=== PATIENT | female | born 1965 | race Caucasian/White ===

== ENCOUNTER → 2020-07-01 12:36 | Outpatient (CLI) | payer MEDICARE, MEDICAID, SELFPAY ==
--- NOTE | 2020-07-01 12:40 | CA_ITS ---
APPROVED REPORT Bilateral Lower Extremity Venous Study for Inspector Exhaust Emissions: PAOLA RCS, RVS Indications leg pain bilateral Findings Color flow duplex of the right lower extremity demonstrates no evidence of deep vein thombosis nor superficial venous thrombophlebitis. Color flow duplex of the left lower extremity demonstrates no evidence of deep vein thrombosis nor superficial venous thrombophlebitis. Conclusion Color flow duplex of the right lower extremity demonstrates no evidence of deep vein thombosis nor superficial venous thrombophlebitis. Color flow duplex of the left lower extremity demonstrates no evidence of deep vein thrombosis nor superficial venous thrombophlebitis. Electronically signed by : Esdras Gaona MD 07/01/2020 16:10:17
--- NOTE | 2020-07-01 12:52 | XR_ITS ---
PROCEDURE: XR CHEST 2V CLINICAL HISTORY: cp Chest pain COMPARISON: No exams were available for comparison FINDINGS: The cardiomediastinal silhouette and pulmonary vascularity are within normal limits. The lungs are clear without infiltrates, suspicious nodules, or pleural effusions. There is loss of height anteriorly of the T6 and T7 vertebral body age indeterminate. IMPRESSION: Mild loss of height anteriorly of the T6 and T7 vertebral body. This is age indeterminate Otherwise negative Dictated by: Esdras Gaona MD 07/01/2020 13:41 Esdras Gaona MD in [place] 07/01/2020 13:41
[2020-07-01 14:23] LABS: Basophils % 0.6 % (0.1-2.0); Eosinophils # 0.1 K/mm3 (0.0-0.4); Eosinophils % 1.1 % (0.1-12.0); Hematocrit 38.4 % (37.0-47.0); Hemoglobin 12.6 g/dL (12.2-16.2); Lymphocytes % 42.9 % (10-50); Mean Corpuscular HGB Conc 32.9 g/dL (31.8-35.4); Mean Corpuscular Hemoglobin 38.6 pg (27.0-31.2); Mean Corpuscular Volume 117.3 fl (81-99); Mean Platelet Volume 9.3 fl (7.4-10.4); Monocytes # 0.4 K/mm3 (0.1-1.0); Monocytes % 5.1 % (1.7-9.3); Neutrophils # 3.6 K/mm3 (1.8-7.8); Neutrophils % 50.4 % (37.0-80.0); Platelet Count 201 K/mm3 (142-424); Red Blood Count 3.28 M/mm3 (4.20-5.40); Red Cell Distribution Width 14.9 % (11.5-17.5); White Blood Count 7.1 K/mm3 (4.8-10.8)
[2020-07-01 14:42] LABS: Chloride 106 mmol/L (98-107); Potassium 4.6 mmoL/L (3.5-5.1); Sodium 139 mmol/L (136-145)
[2020-07-01 14:44] LABS: Blood Urea Nitrogen 13 mg/dl (7-17); Estimated Glomerular Filt Rate 65 ml/min (>60); GFR (African American) 79 ML/MIN (>60)
[2020-07-01 14:45] LABS: Alanine Aminotransferase 7 U/L (12-78); Albumin Level 4.3 g/dl (3.5-5.0); Alkaline Phosphatase 72 U/L (38-126); Anion Gap 7.6 mEq/L (5-15); Aspartate Amino Transferase 17 U/L (14-36); Bilirubin,Direct 0.3 mg/dl (0.0-0.4); Bilirubin,Indirect 0.1 mg/dL (0.0-0.9); Bilirubin,Total 0.4 mg/dl (0.2-1.3); Bilirubin,Unconjugated 0.1 mg/dL (0.0-1.1); Calcium 9.4 mg/dl (8.4-10.2); Carbon Dioxide 30 mmol/L (22.0-30.0); Chol/HDL Ratio 3.1 (1-3.5); Cholesterol 160 mg/dl (140-200); Creatine Kinase 47 U/L (30-135); Glucose 103 mg/dl (74-100); HDL Cholesterol 52 mg/dl (40-60); Total Protein,Serum 7.3 g/dl (6.3-8.2); Triglycerides 209 mg/dl (30-150); VLDL Cholesterol 42 mg/dL (0-40)
[2020-07-01 14:56] LABS: Direct LDL Cholesterol 75.51 mg/dL (100-129)
[2020-07-01 15:00] LABS: Free T4 (Free Thyroxine) 1.07 ng/dl (0.78-2.19)
[2020-07-01 15:17] LABS: Thyroid Stimulating Hormone 0.31 uIU/mL (0.465-4.68)
== END ==
PROVIDERS: PCP Family Medicine; Visit Provider Internal Medicine
DX: R07.9 Chest pain, unspecified (principal); I73.9 Peripheral vascular disease, unspecified; I10 Essential (primary) hypertension; E78.5 Hyperlipidemia, unspecified; M79.606 Pain in leg, unspecified; F17.200 Nicotine dependence, unspecified, uncomplicated
CPT/HCPCS: 36415; 71046; 80048; 80061; 80076; 82550; 84439; 84443; 85025; 93970

== ENCOUNTER → 2020-08-21 11:32 | Outpatient (CLI) | payer MEDICARE, MEDICAID, SELFPAY ==
--- NOTE | 2020-08-21 11:32 | NM_ITS ---
APPROVED REPORT Exam: Nuclear Stress Test Indication: HTN, HYPERLIPIDEMIA,TOB USE, C.P., SOB, SYNCOPE Patient Location: Outpatient Stress Tech: Chanda Coffeynkson [place] Tech:JOLLY Hernandez RT (R)(N)(M) Ht: 5 ft 8 in Wt: 210 lbs Bra Size: 40C HR: 78 bpm BP: 133/76 mmHg BSA: 2.09 m2 BMI: 31.9 History: HTN, HYPERLIPIDEMIA,TOB USE, C.P., SOB, SYNCOPE Procedure: Patient received a 0.4 mg of intravenous Lexiscan, resting heart rate 78 bpm, resting blood pressure 133/76 mmHg, with Lexiscan maximum heart rate achived was 108 bpm which is Less than 85 % of the maximum predicted heart rate and blood pressure was 166/82 mmHg. With Lexiscan, patient denied any complaint of chest pain. Electrocardiogram Resting electrocardiogram showed sinus rhythm, with Lexiscan there is less than 1.[address] segment depression noted from the baseline EKG. The EKG portion of the Lexiscan is nondiagnostic. Cardiac Stress and Resting SPECT Images: Cardiac Stress and Resting SPECT images were obtained using technetium 99m Myoview 32.4 mCi stress and 10.18 mCi at rest. Gated SPECT for analysis of segmental wall motion and calculation of the ejection fraction also done. Prone images were also obtained. Cardiac stress and resting SPECT images show uniform myocardial activity without segmental perfusion abnormality, computer derived ejection fraction is over 65% with no regional wall motion abnormality, right ventricle is normal size and contractility. Conclusion: 1. The EKG portion of the Lexiscan is nondiagnostic. 2. No scintigraphic evidence of reversible ischemia seen, computer derived ejection fraction is over 65% with no regional wall motion abnormality, right ventricle is normal size and contractility. 3. Normal Lexiscan Myoview study. Electronically signed by : Manuel Reece, 08/22/2020 12:52:28
--- NOTE | 2020-08-21 12:41 | CA_ITS ---
APPROVED REPORT EXAM: Comprehensive 2D, Doppler, and color-flow Echocardiogram Headrig Sawyer: Lizbeth Castillo RCS, RVS Ht: 5 ft 8 in Wt: 203lbs BSA: 2.06 BP: 177/93 mmHg Indications: Shortness of Breath, Hypertension/HDD, smoker Echo Enhancing Agent Comments: Poor acoustic windows throughout with lung impedence 2D Dimensions LA Volume 67.20 mL LA Volume Index 32.60 mL/m2 (M/F) 16-34 M-Mode Dimensions RVDd 1.82 cm (0.9-2.6) LA Diam 4.00 cm (1.9-4.0) LVDd 5.40 cm (3.5-5.7) Ao Diam 3.43 cm (2.0-3.7) LVDs 3.18 cm (3.5-5.7) IVSd 0.79 cm (0.6-1.1) PWd 0.68 cm (0.6-1.1) EF (Teich) 71.50% EPSs 0.61 cm FS 41.10% EDV (Teich) 141.30 mL TAPSE 2.42 (<1.7) ESV (Teich) 40.30 mL LV Diastology E Decel Time 153.00 (160-240 msec) E/A Ratio 1.25 MED E' 10.10 (< 7 cm/sec) MED A' 11.30 cm/s E'/MED E' Ratio 11.62 (>14) LAT E' 9.60 (<10 cm/sec) LAT A' 12.20 cm/s E/LAT E' Ratio 12.23 (>14) Pulm Vein s 57.00 cm/sec Aortic Valve LVOT Max 119.00 (70-110 cm/s) LVOT VTI 24.35 cm AO Peak GR. 7.60 mmHg Mitral Valve MV A Velocity 94.00 (40-130 cm/s) E/A Ratio 1.25 MV Decel. Time 153.00 (160-240 ms) Pulmonary Valve PV Peak Velocity 94.00 (50-150 cm/s) Tricuspid Valve TR P. Velocity 228.00 cm/s RAP Estimate 10.00 mmHg RVSP 30.80 mmHg Left Ventricle Left atrium is mildly enlarged, left ventricle is normal size, mild concentric left ventricular hypertrophy, visually estimated ejection fraction 55% with no regional wall motion abnormality, diastolic parameters are inconclusive. Right Ventricle Right atrium and right ventricle are normal size and contractility. Aortic Valve Aortic valve is grossly normal, there is no aortic stenosis or aortic insufficiency. Mitral Valve Mitral valve is grossly normal, there is trace mitral regurgitation. Tricuspid Valve Tricuspid grossly normal, there is trace tricuspid regurgitation. Tricuspid rotation jet velocity is inadequate for calculation of the right ventricular systolic pressure. Pulmonic Valve Pulmonic valve is poorly visualized. Great Vessels Aortic root is normal size. Pericardium No significant pericardial effusion noted. Conclusion 1. Mildly enlarged left atrium, normal left ventricular size, mild concentric left ventricular hypertrophy, visually estimated ejection fraction 55% with no regional wall motion abnormality, diastolic parameters are inconclusive. 2. Trace mitral and tricuspid regurgitation. 3. No significant pericardial effusion. Electronically signed by : Manuel Reece, 08/22/2020 15:26:39
--- NOTE | 2020-08-21 12:41 | US_ITS ---
APPROVED REPORT Exam Type: Ankle to Brachial Index Hospice Volunteer: Mauro RCS, RVS Indications Claudication: Rest Pain: History of Smoking Risk Factors Hypertension Current Smoker Pressures/Indices Right Indices Left Indices Brachial 144.00 mmHg Brachial 144.00 mmHg Low Thigh 156.00 mmHg 1.08 Low Thigh 152.00 mmHg 1.06 Calf 168.00 mmHg 1.17 Calf 149.00 mmHg 1.03 Ankle(PT) 164.00 mmHg 1.14 Ankle(PT) 154.00 mmHg 1.07 Ankle(DP) 159.00 mmHg 1.10 Ankle(DP) 147.00 mmHg 1.02 Digit 112.00 mmHg 0.78 Digit 123.00 mmHg 0.85 Findings RT LOUISE=1.14 LT LOUISE=1.07 RT TPI=0.78 LT TPI=0.85 Conclusion RT LOUISE=1.14 LT LOUISE=1.07 RT TPI=0.78 LT TPI=0.85 Normal appearing resting noninvasive lower extremity arterial study. Electronically signed by : Esdras Gaona MD 08/26/2020 16:11:18
--- NOTE | 2020-08-21 14:30 | CA_ITS ---
APPROVED REPORT Exam: Pharmacologic Technologist: Breana Henderson Ht: 5 ft 9 in Wt: 203 lbs BSA: 2.08 m2 HR: 78 bpm BP: 133/76 mmHg Rhythm: NSR Medical History Medical History: HTN, Hyperlipidemia Allergies: No known drug allergies Cardiac Risk Factors: HTN, FHX of CAD, Hyperlipidemia Stress Test Details HR Resting HR: 78 bpm Max Heart Rate (APMHR): 167 bpm Max HR Achieved: 108 bpm Target HR (85% APMHR): 141 bpm % of APMHR: 64 Recovery HR: 83 bpm BP Resting BP: 133.0/76.0 mmHg Max BP: 165.0/88.0 mmHg Recovery BP: 160.0/85.0 mmHg ECG Resting ECG: NSR Stress ECG Conclusion PT BECAME SOA, MALAISE, MILD CHEST TIGHTNESS, NO ARRHYTHMIAS. NON SPECIFIC T WAVE FLATTENING. UNREMARKABLE LEXISCAN STRESS. MYOVIEW IMAGES REPORTED SEPARATELY. Electronically signed by : Manuel Reece, 08/22/2020 12:49:25
== END ==
PROVIDERS: PCP Family Medicine; Visit Provider Internal Medicine
DX: E78.5 Hyperlipidemia, unspecified (principal); F17.200 Nicotine dependence, unspecified, uncomplicated; I10 Essential (primary) hypertension; R07.9 Chest pain, unspecified; I73.9 Peripheral vascular disease, unspecified; R06.00 Dyspnea, unspecified
CPT/HCPCS: 78452; 93017; 93306; 93923; A9502; J2785

== ENCOUNTER → 2020-08-27 12:22 | Outpatient (CLI) | payer MEDICARE, MEDICAID, SELFPAY ==
[2020-08-27 15:10] LABS: Vitamin B12 207 pg/mL (239-931)
[2020-08-27 15:11] LABS: Folate 1.88 ng/mL
[2020-09-06 06:16] LABS: 1,25 Dihydroxy Vitamin D 46 pg/mL (.); 1,25-Dihydroxy, Vitamin D-2 <10 pg/mL (.); 1,25-Dihydroxy, Vitamin D-3 44 pg/mL (.)
== END ==
PROVIDERS: Visit Provider Internal Medicine
DX: D75.89 Other specified diseases of blood and blood-forming organs (principal); E78.2 Mixed hyperlipidemia; F17.200 Nicotine dependence, unspecified, uncomplicated; I10 Essential (primary) hypertension; R07.9 Chest pain, unspecified
CPT/HCPCS: 36415; 82607; 82652; 82746

== ENCOUNTER → 2021-01-09 09:53 | Outpatient (CLI) | payer MEDICARE, MEDICAID, SELFPAY ==
--- NOTE | 2021-01-09 09:53 | CT_ITS ---
PROCEDURE: CT CHEST WO CON CLINICAL INDICATION: Spontaneous pneumothorax COMPARISON: No exams were available for comparison TECHNIQUE: Axial images obtained with sagittal and coronal reformats. All CT scans at the facility use one or more dose reduction, viz: automated exposure control, ma/kV adjustment per patient size (including targeted exams where dose is matched to indication, i.e. head), or iterative reconstruction technique. FINDINGS: No mediastinal or hilar mass or adenopathy. There are COPD changes. There are small right apical blebs largest of which is 1.7 cm. There are centrilobular emphysematous changes. There is evidence of old granulomatous disease. Mild biapical fibrotic changes also noted. In the right apex there are 2 small areas of increased density and may represent calcifications or small clips. No acute bony findings. There is mild thoracic curvature convex left. IMPRESSION: COPD changes with small right apical blebs the largest at 1.7 cm with biapical fibrotic change. Two small hyperdensities are present in the right apex and could be due to calcifications or clips. There is no evidence of residual pneumothorax. There are centrilobular emphysematous changes No suspicious mass effusion or infiltrate. Dictated by: Esdras Gaona MD 01/09/2021 13:24 Esdras Gaona MD in [place] 01/09/2021 13:24
--- NOTE | 2021-01-09 09:53 | US_ITS ---
PROCEDURE: US THYROID CLINICAL INDICATION: goiter COMPARISON: No exams were available for comparison FINDINGS: Right lobe: 4.1 x 2 x 2 cm. A 3 x 2 mm hypoechoic nodule is present in the mid aspect of the right lobe TR level 2 benign-appearing Left lobe: 4.5 x 2.1 x 2.7 cm. A small 4 x 2 mm slightly hypoechoic areas present in the upper pole. A 5 mm by 6 x 3 mm cystic nodules present in the mid polar region. A 4 mm hypoechoic nodules present in the lower pole and a 5 x 3 mm hypoechoic nodule also noted in the lower pole. These are not suspicious. Isthmus: The isthmus is thickened at 7 mm. There is a 7 mm slightly hypo to isoechoic nodule of the right lobe of the thyroid gland well-circumscribed without obvious calcifications. There is some enhanced through transmission of sound. Additional findings: IMPRESSION: Small bilateral benign-appearing thyroid nodules and nodule within the isthmus. Recommend annual follow-up Dictated by: Esdras Gaona MD 01/09/2021 13:07 Esdras Gaona MD in [place] 01/09/2021 13:07
--- NOTE | 2021-01-09 10:45 | PC.NURSE ---
Pt completed PFT without incident. Albuterol 0.083% given via HHN, per protocol, Pt tolerated tx well.
== END ==
PROVIDERS: PCP Family Medicine; Visit Provider Internal Medicine Pulmonary Disease
DX: F17.210 Nicotine dependence, cigarettes, uncomplicated (principal); J93.83 Other pneumothorax; R06.00 Dyspnea, unspecified; R06.02 Shortness of breath; E04.9 Nontoxic goiter, unspecified
CPT/HCPCS: 71250; 76536; 94060; 94726; 94729

== ENCOUNTER → 2022-11-11 12:35 | Outpatient (CLI) | payer MEDICARE, MEDICAID, SELFPAY ==
--- NOTE | 2022-11-11 12:52 | XR_ITS ---
FINAL REPORT TECHNIQUE: Chest PA & Lateral CLINICAL HISTORY: chest pain/ tightness FINDINGS: 2 views of the chest were performed. The heart size is normal. The mediastinum is within normal limits. There is no acute cardiopulmonary process. There are no pleural effusions. There is no pneumothorax. The bony thorax appears intact. IMPRESSION: No acute cardiopulmonary process. Reviewed, Interpreted and Dictated by Johnathan Smart MD Transcribed by Rajani Briscoe Authenticated and . [facility]
[2022-11-11 12:57] LABS: Basophils % 0.5 % (0.1-2.0); Eosinophils # 0.1 K/mm3 (0.0-0.4); Eosinophils % 1.5 % (0.1-12.0); Hematocrit 39.8 % (37.0-47.0); Hemoglobin 13.2 g/dL (12.2-16.2); Lymphocytes # 3.5 K/mm3 (0.7-4.5); Lymphocytes % 48.3 % (10-50); Mean Corpuscular HGB Conc 33.1 g/dL (31.8-35.4); Mean Corpuscular Volume 105.7 fl (81-99); Mean Platelet Volume 9.4 fl (7.4-10.4); Monocytes # 0.3 K/mm3 (0.1-1.0); Monocytes % 4.5 % (1.7-9.3); Neutrophils # 3.3 K/mm3 (1.8-7.8); Neutrophils % 45.1 % (37.0-80.0); Platelet Count 184 K/mm3 (142-424); Red Blood Count 3.77 M/mm3 (4.20-5.40); Red Cell Distribution Width 12.8 % (11.5-17.5); White Blood Count 7.3 K/mm3 (4.8-10.8)
[2022-11-11 13:15] LABS: Alanine Aminotransferase 13 U/L (12-78); Albumin Level 4.2 g/dl (3.5-5.0); Alkaline Phosphatase 68 U/L (38-126); Anion Gap 13.1 mEq/L (5-15); Aspartate Amino Transferase 21 U/L (14-36); Bilirubin,Indirect 0.5 mg/dL (0.0-0.9); Bilirubin,Total 0.5 mg/dl (0.2-1.3); Bilirubin,Unconjugated 0.6 mg/dL (0.0-1.1); Blood Urea Nitrogen 10 mg/dl (7-17); Calcium 9.3 mg/dl (8.4-10.2); Carbon Dioxide 30 mmol/L (22.0-30.0); Chloride 102 mmol/L (98-107); Cholesterol 178 mg/dl (140-200); Estimated Glomerular Filt Rate 74 ml/min (>60); GFR (African American) 90 ML/MIN (>60); Glucose 95 mg/dl (74-100); HDL Cholesterol 44 mg/dl (40-60); Potassium 4.1 mmoL/L (3.5-5.1); Sodium 141 mmol/L (136-145); Total Protein,Serum 6.9 g/dl (6.3-8.2); Triglycerides 221 mg/dl (30-150); VLDL Cholesterol 44 mg/dL (0-40)
[2022-11-11 13:25] LABS: Direct LDL Cholesterol 90.77 mg/dL (100-129)
[2022-11-11 13:31] LABS: Free T4 (Free Thyroxine) 0.93 ng/dl (0.78-2.19)
[2022-11-11 13:45] LABS: Thyroid Stimulating Hormone 0.93 uIU/mL (0.465-4.68)
[2022-11-16 19:09] LABS: 1,25 Dihydroxy Vitamin D 36 pg/mL (.); 1,25-Dihydroxy, Vitamin D-2 <10 pg/mL (.); 1,25-Dihydroxy, Vitamin D-3 36 pg/mL (.)
== END ==
PROVIDERS: PCP Family Medicine; Visit Provider Internal Medicine
DX: E11.9 Type 2 diabetes mellitus without complications (principal); E78.2 Mixed hyperlipidemia; R06.00 Dyspnea, unspecified; R07.9 Chest pain, unspecified; R42 Dizziness and giddiness; R55 Syncope and collapse; I63.9 Cerebral infarction, unspecified; I11.9 Hypertensive heart disease without heart failure
CPT/HCPCS: 36415; 71046; 80048; 80061; 80076; 82652; 84439; 84443; 85025

== ENCOUNTER → 2022-12-18 11:57 | Outpatient (CLI) | payer MEDICARE, MEDICAID, SELFPAY ==
--- NOTE | 2022-12-18 12:03 | CA_ITS ---
APPROVED REPORT Exam: Pharmacologic Technologist: Geetha Peters, Ht: 5 ft 9 in Wt: 186 lbs BSA: 2.00 m2 HR: 68 bpm BP: 175/94 mmHg Rhythm: NSR Medical History Medications: Alprazolam,,,,, Pantoprazole,,,,, PERCOCET,,,,, Albuterol,,,,, Estradiol,,,,, ProMETHAZINE,,,,, Cyclobenzaprine,,,,, Metoprolol Succinate ER,,,,, Isosorbide Mononitrate ER,,,,, Valsartan-HCTZ,,,,, Stress Test Details Test: LEXISCAN Reason for pharmacologic stress test: physical limitation. HR Resting HR: 78 bpm Max Heart Rate (APMHR): 164 bpm Max HR Achieved: 110 bpm Target HR (85% APMHR): 139 bpm % of APMHR: 67 Recovery HR: 85 bpm BP Resting BP: 175/94 mmHg Max BP: 184/91 mmHg Recovery BP: 174.0/90.0 mmHg ECG Resting ECG: NSR, PACs Stress ECG: No change Arrhythmia: PACs Clinical Exercise duration: 04:00 min Highest Stage Achieved: Exercise capacity: n/a METs Stress ECG Conclusion Symptoms: Mild chest heaviness, mild SOA, leg heaviness. Arrhythmias/Ectopy: Occasional PAC. ST-T Changes: No significant changes. Conclusion: Unremarkable Lexiscan stress. Myoview images reported separately. Of note, the patient's BP was noted to be elevated at baseline. She will monitor her BP at home & alert her physican if stays elevated. Test Summary REST . . . . . . . Resting REST 05:34 . . 78 . 175/ 94 . . Stage 1 01:00 . . 101 . . . . Stage 2 01:00 . . 108 . 177/ 90 . . Stage 3 01:00 . . 98 . 178/ 92 . . Stage 4 01:00 . . 100 . 171/ 98 . Stop exercise at 04:00 RECOVERY 01:00 . . 88 . . . . RECOVERY 02:00 . . 85 . 184/ 91 . . RECOVERY 03:00 . . 87 . 174/ 90 . . RECOVERY 03:18 . . 86 . 174/ 90 . . Electronically signed by : Dennise Clark, 12/20/2022 17:24:59
--- NOTE | 2022-12-18 12:03 | CA_ITS ---
APPROVED REPORT EXAM: Comprehensive 2D, Doppler, and color-flow Echocardiogram Human Services Manager: Joycelyn Estrada CRT Ht: 5 ft 9 in Wt: 186lbs BSA: 2.00 BP: 152/79 mmHg Indications: Shortness of Breath, Fatigue, Hyperlipidemia, Hypertension/HDD, smoker 2D Dimensions LVOT 1.75 cm (M/F) 1.5-2.5 LA Volume 46.90 mL LA Volume Index 23.45 mL/m2 (M/F) 16-34 M-Mode Dimensions RVDd 2.36 cm (0.9-2.6) LA Diam 2.91 cm (1.9-4.0) LVDd 4.94 cm (3.5-5.7) Ao Diam 4.04 cm (2.0-3.7) LVDs 3.54 cm (3.5-5.7) IVSd 1.00 cm (0.6-1.1) PWd 0.97 cm (0.6-1.1) EF (Teich) 54.50% FS 28.30% EDV (Teich) 115.00 mL TAPSE 2.93 (<1.7) ESV (Teich) 52.30 mL LV Diastology E Decel Time 190.00 (160-240 msec) E/A Ratio 0.83 MED E' 9.00 (< 7 cm/sec) MED A' 9.80 cm/s E'/MED E' Ratio 9.59 (>14) LAT E' 7.30 (<10 cm/sec) LAT A' 9.20 cm/s E/LAT E' Ratio 11.82 (>14) Aortic Valve AO Peak GR. 7.40 mmHg Mitral Valve MV A Velocity 104.00 (40-130 cm/s) E/A Ratio 0.83 MV Decel. Time 190.00 (160-240 ms) Pulmonary Valve PV Peak Velocity 115.00 (50-150 cm/s) Tricuspid Valve TR P. Velocity 322.00 cm/s RAP Estimate 10.00 mmHg RVSP 51.60 mmHg Left Ventricle The left ventricle is normal size. The left ventricular systolic function is normal. The left ventricular ejection fraction is within the normal range. There is normal left ventricular wall thickness. There is normal LV segmental wall motion. The left ventricular diastolic function is normal. LVEF is 55%. Right Ventricle The right ventricle is normal size. The right ventricular systolic function is normal. Atria The left atrium size is normal. The right atrium size is normal. There is no Doppler evidence of interatrial shunt. Aortic Valve The aortic valve is normal in structure. There is no aortic valvular stenosis. No aortic regurgitation is present. Mitral Valve The mitral valve is normal in structure. No evidence of mitral valve stenosis. Trace mitral regurgitation. Tricuspid Valve The tricuspid valve leaflets are thin and pliable. There is trace tricuspid valve regurgitation noted. Pulmonic Valve The pulmonary valve is normal in structure. Trace pulmonic regurgitation. Great Vessels The aortic root is normal in size. The ascending aorta is normal in size. IVC is normal in size and collapses >50% with inspiration. Pericardium There is no pericardial effusion. Other Information Study Quality: Adequate Conclusion Normal biventricular systolic function. No significant valvular disease. Electronically signed by : Dennise Clark, 12/19/2022 14:16:51
--- NOTE | 2022-12-18 12:03 | NM_ITS ---
APPROVED REPORT Exam: Nuclear Stress Test Indication: chest pain..soa..fatigue Patient Location: Outpatient Stress Tech: Geetha Felton [place] Tech:JOLLY Vazquez RT(R)(N) Ht: 5 ft 8 in Wt: 184 lbs Bra Size: 42b HR: 78 bpm BP: 175/94 mmHg BSA: 1.97 m2 TID: 1.03 BMI: 27.9 History: chest pain..soa..fatigue Procedure: Patient received 0.4 mg of intravenous Lexiscan, resting heart rate 78 bpm, resting blood pressure 175/94 mmHg, with Lexiscan maximum heart rate achieved was 110 bpm which is 85 % of the maximum predicted heart rate and blood pressure was 184/91 mmHg. With Lexiscan, patient denied any complaint of chest pain. Cardiac Stress and Resting SPECT Images: Cardiac Stress and Resting SPECT images were obtained using technetium 99m Myoview 32.8 mCi stress and 10.49 mCi at rest. Resting and stress imaging in both supine and prone positions demonstrate medium-sized, mild, fixed perfusion defect in the mid to distal anterior LV wall. Gated imaging demonstrates normal global and regional LV systolic function. LVEF is calculated at 58% Conclusion: Resting and stress imaging in both supine and prone positions demonstrate medium-sized, mild, fixed perfusion defect in the mid to distal anterior LV wall. No evidence of reversible ischemia. Gated imaging demonstrates normal global and regional LV systolic function. LVEF is calculated at 58% Electronically signed by : Dennise Clark, 12/20/2022 17:28:27
== END ==
PROVIDERS: PCP Family Medicine; Visit Provider Internal Medicine
DX: E78.2 Mixed hyperlipidemia (principal); I10 Essential (primary) hypertension; R06.00 Dyspnea, unspecified; R07.9 Chest pain, unspecified; R42 Dizziness and giddiness; R55 Syncope and collapse
CPT/HCPCS: 78452; 93017; 93306; A9502; J2785

== ENCOUNTER → 2022-12-28 12:02 | Outpatient (CLI) | payer MEDICARE, MEDICAID, SELFPAY ==
[2022-12-28 14:15] LABS: Vitamin B12 314 pg/mL (239-931)
[2022-12-28 14:16] LABS: Folate 2.38 ng/mL
== END ==
PROVIDERS: PCP Family Medicine; Visit Provider Internal Medicine
DX: D75.89 Other specified diseases of blood and blood-forming organs (principal)
CPT/HCPCS: 36415; 82607; 82746

== ENCOUNTER 2023-08-16 12:24 | Outpatient (CLI) | payer MEDICARE, MEDICAID, SELFPAY ==
--- NOTE | 2023-08-16 12:28 | XR_ITS ---
FINAL REPORT CLINICAL HISTORY: smoker..COPD COMPARISON: 11/11/2022 FINDINGS: 2 views of the chest were obtained . The heart is normal in size. The mediastinum is within normal limits. The lungs are clear. There is no pneumothorax. Osseous structures are unremarkable. IMPRESSION: No acute cardiopulmonary process. Reviewed, Interpreted and Dictated by Meredith Bhakta MD Transcribed by Ara Estes Authenticated and [facility]
[2023-08-16 13:10] LABS: Basophils # 0.1 K/mm3 (0-0.2); Eosinophils # 0.1 K/mm3 (0.0-0.4); Eosinophils % 0.6 % (0.1-12.0); Hematocrit 37.4 % (37.0-47.0); Hemoglobin 12.7 g/dL (12.2-16.2); Lymphocytes # 2.8 K/mm3 (0.7-4.5); Lymphocytes % 29.9 % (10-50); Mean Corpuscular HGB Conc 34.1 g/dL (31.8-35.4); Mean Corpuscular Hemoglobin 38.4 pg (27.0-31.2); Mean Corpuscular Volume 112.6 fl (81-99); Mean Platelet Volume 9.2 fl (7.4-10.4); Monocytes # 0.4 K/mm3 (0.1-1.0); Monocytes % 4.7 % (1.7-9.3); Neutrophils # 5.9 K/mm3 (1.8-7.8); Neutrophils % 63.8 % (37.0-80.0); Platelet Count 258 K/mm3 (142-424); Red Blood Count 3.32 M/mm3 (4.20-5.40); Red Cell Distribution Width 13.2 % (11.5-17.5); White Blood Count 9.3 K/mm3 (4.8-10.8)
[2023-08-16 14:27] LABS: Alanine Aminotransferase 15 U/L (12-78); Albumin Level 4.4 g/dl (3.5-5.0); Alkaline Phosphatase 73 U/L (38-126); Anion Gap 10.6 mEq/L (5-15); Aspartate Amino Transferase 26 U/L (14-36); Bilirubin,Direct 0.2 mg/dl (0.0-0.4); Bilirubin,Indirect 0.3 mg/dL (0.0-0.9); Bilirubin,Total 0.5 mg/dl (0.2-1.3); Bilirubin,Unconjugated 0.4 mg/dL (0.0-1.1); Blood Urea Nitrogen 11 mg/dl (7-17); Calcium 9.8 mg/dl (8.4-10.2); Carbon Dioxide 30 mmol/L (22.0-30.0); Chloride 99 mmol/L (98-107); Chol/HDL Ratio 5.1 (1-3.5); Cholesterol 179 mg/dl (140-200); Creatine Kinase 37 U/L (30-135); Estimated Glomerular Filt Rate 51 ml/min (>60); GFR (African American) 62 ML/MIN (>60); Glucose 110 mg/dl (74-100); HDL Cholesterol 35 mg/dl (40-60); Magnesium 1.6 mg/dl (1.6-2.3); Potassium 3.6 mmoL/L (3.5-5.1); Sodium 136 mmol/L (136-145); Total Protein,Serum 6.8 g/dl (6.3-8.2); Triglycerides 206 mg/dl (30-150); VLDL Cholesterol 41 mg/dL (0-40)
[2023-08-16 14:39] LABS: C-Reactive Protein 3.8 mg/L (0-4); Direct LDL Cholesterol 84.65 mg/dL (100-129)
[2023-08-16 14:42] LABS: Erythrocyte Sedimentation Rate 20 mm/hr (0-30)
[2023-08-16 14:45] LABS: 25-OH Vitamin D, Total 22.1 ng/mL (30-100)
[2023-08-16 14:46] LABS: Free T4 (Free Thyroxine) 1.09 ng/dl (0.78-2.19)
[2023-08-16 14:59] LABS: Thyroid Stimulating Hormone 0.62 uIU/mL (0.465-4.68)
[2023-08-16 15:34] LABS: Vitamin B12 363 pg/mL (239-931)
[2023-08-16 15:43] LABS: Folate 2.88 ng/mL
== END 2023-08-16 23:59 ==
LOC: RAD 12:25
PROVIDERS: PCP Family Medicine; Visit Provider Internal Medicine
DX: F17.200 Nicotine dependence, unspecified, uncomplicated (principal); E78.2 Mixed hyperlipidemia; I10 Essential (primary) hypertension; R53.1 Weakness; R20.0 Anesthesia of skin; R20.2 Paresthesia of skin; R29.6 Repeated falls; R92.8 Other abnormal and inconclusive findings on diagnostic imaging of breast; J44.9 Chronic obstructive pulmonary disease, unspecified; R42 Dizziness and giddiness; R06.00 Dyspnea, unspecified; E55.9 Vitamin D deficiency, unspecified
CPT/HCPCS: 71046; 80048; 80061; 80076; 82306; 82550; 82607; 82746; 83735; 84439; 84443; 85025; 85651; 86140